=== PATIENT | male | born 1970 | race Caucasian/White ===

== ENCOUNTER 2020-02-22 03:18 | Emergency (ER) | payer BC ==
[~2020-02-22] VITALS: Ht 188 cm; Wt 90.9 kg
[2020-02-22 03:25] VITALS: BP 166/11; TEMP 97.4
[2020-02-22 04:12] LABS: BASO % 0.6 % (0.0-2.0); GRAN # 4.2 (1.4-6.5); GRAN % 62.4 % (42.2-75.2); HEMATOCRIT 41.3 % (42.0-52.0); HEMOGLOBIN 14.1 g/dl (13.5-18.0); LYMPH % 29.2 % (20.0-51.0); MEAN CELL VOLUME 90 fl (80.0-100.0); MEAN CORPUSCULAR HEMOGLOBIN 31 pg (27.0-31.0); MEAN CORPUSCULAR HGB CONC 34 g/dl (33.0-37.0); MEAN PLATELET VOLUME 10.9 fl (7.4-10.4); MONO # 0.5 (0.1-0.6); MONO % 7.5 % (1.7-9.3); PLATELET COUNT 214 K/mm3 (130-400); RED BLOOD COUNT 4.59 M/mm3 (4.20-5.60)
[2020-02-22 04:17] LABS: INR 0.9 (0.8-3.0)
[2020-02-22 04:20] LABS: PARTIAL THROMBOPLASTIN TIME 30.7 SECONDS (26.0-37.0)
[2020-02-22 04:25] LABS: ALANINE AMINOTRANSFERASE 24 U/L (4-49); ALBUMIN 4.1 gm/dL (3.5-5.0); ALKALINE PHOSPHATASE 69 U/L (50-136); ANION GAP 5 mmol/L (7-16); AST,SGOT 27 U/L (15-37); BILIRUBIN,TOTAL 0.7 mg/dL (0.0-1.0); BLOOD UREA NITROGEN 18 mg/dL (9-20); CALCIUM 9.1 mg/dL (8.4-10.2); CARBON DIOXIDE 25 mmol/L (22-30); CHLORIDE 105 mmol/L (98-107); CREATININE, serum 1.01 (0.66-1.25); GLUCOSE 102 mg/dL (74-106); SODIUM 136 mmol/L (137-145)
[2020-02-22 04:26] LABS: C-REACTIVE PROTEIN < 0.5 mg/dL (0.0-0.9)
[2020-02-22 06:30] VITALS: PULSE 63
== END 2020-02-22 07:05 | disposition home or self-care (01) ==
LOC: COL.ER 03:18
PROVIDERS: Emergency Medicine
DX: R51 Headache (principal); Z86.69 Personal history of other diseases of the nervous system and sense organs
CPT/HCPCS: J1200; J1885; J2550; J3010; J7030

== ENCOUNTER 2020-05-13 04:08 | Emergency (ER) | payer BC ==
[~2020-05-13] VITALS: Ht 188 cm; Wt 90.9 kg
[2020-05-13 04:16] VITALS: TEMP 98.8
[2020-05-13] MEDS ORDERED: NORCO 325 MG-51 TAB PO (06:36)
[2020-05-13] MEDS ORDERED: NORFLEX 10100 MG/TAB PO (06:36)
[2020-05-13 06:48] VITALS: BP 181/89; PULSE 90
== END 2020-05-13 06:50 | disposition home or self-care (01) ==
LOC: COL.ER 04:08
DX: M54.2 Cervicalgia (principal); M54.81 Occipital neuralgia; G43.909 Migraine, unspecified, not intractable, without status migrainosus
CPT/HCPCS: J1885; J2360

== ENCOUNTER 2021-02-17 10:40 | Outpatient (RCR) | payer OTHER ==
[~2021-02-17 10:40] MED LIST: NORCO 325 MG-51 TAB PO; NORFLEX 10100 MG/TAB PO
== END 2021-05-18 | disposition home or self-care (01) ==
LOC: WSOH
DX: S46.011A Strain of muscle(s) and tendon(s) of the rotator cuff of right shoulder, initial encounter (principal); G43.909 Migraine, unspecified, not intractable, without status migrainosus; M19.90 Unspecified osteoarthritis, unspecified site; Z98.890 Other specified postprocedural states; Y93.89 Activity, other specified; Y92.69 Other specified industrial and construction area as the place of occurrence of the external cause

== ENCOUNTER 2021-10-23 10:30 | Outpatient (RCR) | payer OTHER, BC | END 2021-11-02 | disposition home or self-care (01) | LOC: WSPT | DX: S06.0X0D Concussion without loss of consciousness, subsequent encounter (principal); M54.2 Cervicalgia; X58.XXXD Exposure to other specified factors, subsequent encounter ==

== ENCOUNTER 2021-10-27 09:01 | Outpatient (RCR) | payer OTHER, BC | END 2021-11-02 | disposition home or self-care (01) | LOC: WSST | DX: S06.0X0S Concussion without loss of consciousness, sequela (principal) ==

== ENCOUNTER 2021-11-29 15:00 | Outpatient (RCR) | payer OTHER | END 2021-12-02 | disposition home or self-care (01) | LOC: WSST | DX: S06.0X0S Concussion without loss of consciousness, sequela (principal) ==

== ENCOUNTER 2021-11-29 16:00 | Outpatient (RCR) | payer OTHER | END 2021-12-02 | disposition home or self-care (01) | LOC: MKS.ESL.PT | DX: S06.0X0D Concussion without loss of consciousness, subsequent encounter (principal); M54.2 Cervicalgia; X58.XXXD Exposure to other specified factors, subsequent encounter ==

== ENCOUNTER 2021-12-06 09:09 | Outpatient (RCR) | payer OTHER | END 2022-01-02 | disposition home or self-care (01) | LOC: WSST | DX: S09.90XD Unspecified injury of head, subsequent encounter (principal); R41.3 Other amnesia ==

== ENCOUNTER 2021-12-06 12:00 | Outpatient (RCR) | payer OTHER | END 2022-01-02 | LOC: MKS.ESL.PT | DX: M54.2 Cervicalgia (principal) ==

== ENCOUNTER 2022-01-16 12:45 | Outpatient (RCR) | payer OTHER | END 2022-02-01 | disposition home or self-care (01) | LOC: WSST | DX: S09.90XD Unspecified injury of head, subsequent encounter (principal); R41.3 Other amnesia ==

== ENCOUNTER 2024-05-21 23:42 | Observation (INO) | payer BC ==
[~2024-05-21] VITALS: Ht 185.4 cm; Wt 95.8 kg
[~2024-05-21 23:42] MED LIST changes: +ADDERALL5 MG PO; +ATIVAN 1MG T1 MG/TAB PO; +CALCIUM-MAGNES1 EAC1 PO; +CELEBREX50 MG PO; +CINNAMON500 MG PO; +FLEXERIL5 MG PO; +MULTI VITAMINS1 TAB PO; +NATURE'S BLEND600 M2 PO; +OMEGA-3 1000 MG1 CAP PO; +ROBAXIN 50500 MG/TAB PO; +TOPROL XL 50MG50 MG PO; +ULTRAM 50MG TAB50 MG PO; +VICODIN 5/300 PO; +VITAMIN B12 781 TAB PO
[2024-05-21] MEDS ORDERED: NS 1,000 ML IV ONE (23:45)
[2024-05-22] VITALS (7 sets, daily range): BP systolic 153–167; BP diastolic 76–98; PULSE 82–104; TEMP 98–99.2
[2024-05-22 00:02] LABS: BASO # 0.1 K/mm3 (0.0-0.2); BASO % 0.5 % (0.0-2.0); EOS % 0.2 % (0.0-4.0); GRAN # 8.9 K/mm3 (1.4-6.5); GRAN % 67.5 % (42.2-75.2); HEMATOCRIT 50.7 % (42.0-52.0); HEMOGLOBIN 17.5 g/dl (13.5-18.0); LYMPH # 3.4 K/mm3 (1.2-3.4); LYMPH % 26.1 % (20.0-51.0); MEAN CELL VOLUME 89 fl (80.0-100.0); MEAN CORPUSCULAR HEMOGLOBIN 31 pg (27-31); MEAN CORPUSCULAR HGB CONC 35 g/dl (33.0-37.0); MEAN PLATELET VOLUME 10.9 fl (7.4-10.4); MONO # 0.6 K/mm3 (0.1-0.6); MONO % 4.7 % (1.7-9.3); PLATELET COUNT 330 K/mm3 (130-400); RED BLOOD COUNT 5.72 M/mm3 (4.20-5.60); REDCELL DISTRIBUTION WIDTH-CV 13.3 % (11.5-14.5)
[2024-05-22 00:20] LABS: ALANINE AMINOTRANSFERASE 20 U/L (0-55); ALBUMIN 4.7 g/dL (3.5-5.0); ALKALINE PHOSPHATASE 87 U/L (40-150); ANION GAP 24 mmol/L (7-16); AST,SGOT 26 U/L (5-34); BILIRUBIN,TOTAL 0.9 mg/dL (0.2-1.2); BLOOD UREA NITROGEN 15 mg/dL (8-26); CALCIUM 9.8 mg/dL (8.4-10.2); CHLORIDE 104 mEq/L (98-107); CREATINE KINASE 452 U/L (30-200); CREATININE, serum 1.71 mg/dL (0.72-1.25); GLUCOSE 187 mg/dL (70-99); POTASSIUM 4.4 mEq/L (3.5-4.5); SODIUM 140 mEq/L (136-145)
[2024-05-22 00:22] LABS: ALCOHOL(ethanol),MEDICAL < 10 mg/dL (0-10)
[2024-05-22 00:26] LABS: TROPONIN-I 0.017 ng/mL (0.00-0.033)
[2024-05-22] MEDS ORDERED: levETIRAcetam 1,500 MG in Syringe 1 EACH IV ONE (01:30)
[2024-05-22] MEDS ORDERED: Morphine 4 MG/ML VIAL IV ONE ×2 (02:45→19:00)
[2024-05-22] MEDS ORDERED: Ondansetron 4 MG/2 ML VIAL IV PRN (03:00)
[2024-05-22] MEDS ORDERED: hydrALAZINE 20 MG/ML 1 ML VIAL IV PRN (03:00)
[2024-05-22] MEDS ORDERED: LR 1,000 ML IV SCH (03:00)
[2024-05-22] MEDS ORDERED: LORazepam 2 MG/ML 1 ML VIAL IV PRN (03:00)
[2024-05-22 04:53] LABS: COLLECTION METHOD CLEAN CATCH
[2024-05-22 05:05] LABS: PH 5.5 (5.0-8.5); URINE APPEARANCE CLEAR (CLEAR/HAZY); URINE BLOOD 1+ (NEGATIVE); URINE COLOR YELLOW (YELLOW); URINE GLUCOSE NEGATIVE (NEGATIVE); URINE KETONE 3+ (NEGATIVE); URINE NITRATE NEGATIVE (NEGATIVE); URINE PROTEIN(semi-quant) 1+ (NEGATIVE); URINE UROBILINOGEN 0.2 E.U/dL (0.2-1.0)
[2024-05-22 05:11] LABS: TRICYCLIC ANTIDEPRESS URINE POSITIVE (NEGATIVE)
[2024-05-22] MEDS ORDERED: ADDERALL XR30 MG PO (06:06)
[2024-05-22] MEDS ORDERED: DAZIDOX10 MG PO (06:16)
[2024-05-22] MEDS ORDERED: CELEBREX 200MG200 MG PO (06:16)
[2024-05-22] MEDS ORDERED: ULTRAM 50MG TAB50 MG PO (06:17)
[2024-05-22] MEDS ORDERED: DESYREL DIVIDO150 M1 PO (06:17)
--- NOTE | 2024-05-22 07:00 | NUR ---
PT IS RESTLESS IN THE BED ASKING FOR PAIN MEDICATION. HIS IS AT THE BEDSIDE. HE HAS ONE IV SITE INFUSING LR. HE IS ALERT AND ORIENTED
[2024-05-22 08:57] LABS: BASO % 0.2 % (0.0-2.0); EOS % 0.1 % (0.0-4.0); GRAN # 13.6 K/mm3 (1.4-6.5); GRAN % 78.9 % (42.2-75.2); HEMOGLOBIN 15.7 g/dl (13.5-18.0); LYMPH # 2.2 K/mm3 (1.2-3.4); LYMPH % 12.5 % (20.0-51.0); MEAN CORPUSCULAR HEMOGLOBIN 31 pg (27-31); MEAN CORPUSCULAR HGB CONC 37 g/dl (33.0-37.0); MEAN PLATELET VOLUME 10.7 fl (7.4-10.4); MONO # 1.3 K/mm3 (0.1-0.6); MONO % 7.8 % (1.7-9.3); PLATELET COUNT 274 K/mm3 (130-400); RED BLOOD COUNT 5.12 M/mm3 (4.20-5.60)
[2024-05-22 08:58] LABS: MEAN CELL VOLUME 84 fl (80.0-100.0)
[2024-05-22] MEDS ORDERED: Acetaminophen 325 MG TAB PO SCH (09:00)
[2024-05-22 09:11] LABS: CALCIUM 8.7 mg/dL (8.4-10.2); CREATININE, serum 1.14 mg/dL (0.72-1.25); POTASSIUM 3.7 mEq/L (3.5-4.5)
[2024-05-22] MEDS ORDERED: oxyCODONE 5 MG TAB PO PRN ×2 (12:30→19:00)
[2024-05-22] MEDS ORDERED: levETIRAcetam 500 MG TAB PO SCH (12:30)
[2024-05-22] MEDS ORDERED: Lidocaine 2% Viscous 15 ML UNIT DOSE MM PRN (12:30)
[2024-05-22] MEDS ORDERED: Celecoxib 200 MG CAP PO SCH (12:30)
[2024-05-22] MEDS ORDERED: Lidocaine 4% Topical Patch TP SCH (12:30)
[2024-05-22] MEDS ORDERED: Cyclobenzaprine 10 MG TAB PO SCH (13:30)
--- NOTE | 2024-05-22 14:13 | NUR ---
Veterans' Counselor met with patient to discuss discharge planning. Patient lives in [place] with his , Birdie (ph#[phone]) and sees Dr. Shah for primary care. Patient gets his medications from [facility]. SW attempted to ask further questions but patient sighed and grabbed his head. Patient stated he was in pain. SW notified bedside RNJahaira who advised patient is normally independent with ADLS. Discharge Plan; Home
--- NOTE | 2024-05-22 19:00 | NUR ---
MD CONTACTED THAT BALAJI IS COMPLAINING FO 8/9 OUT OF 10 PAIN TO THE NECK THAT IS CONSTANT DULL TO SHARP PAIN. PER MD TORB FOR OXYCODONE TO BE CHANGED TO Q4H PRN AND ONE TIME 2MG IV MORPHINE NOW
--- NOTE | 2024-05-22 20:00 | NUR ---
Shift assessment and neurocheck complete. No outstanding findings at this time. Call light in reach and fall precautions in place.
[2024-05-23] VITALS (13 sets, daily range): BP systolic 133–172; BP diastolic 74–94; PULSE 80–91; TEMP 97.9–99.4
--- NOTE | 2024-05-23 01:00 | NUR ---
Pt. activated bed alarm. This nurse and PCT went to assist pt. Pt. reports he's wanting to the restroom and states he "doesn't need that" referring to the bed alarm. Education provided regarding fall precautions. Offered to assist pt to restroom or assist w/ urinal. Pt. refused any toileting at this time. Pt. resting in bed w/ call light in reach. Fall precautions in place.
[2024-05-23 06:29] LABS: BASO # 0.1 K/mm3 (0.0-0.2); BASO % 0.5 % (0.0-2.0); EOS # 0.1 K/mm3 (0.0-0.7); EOS % 0.9 % (0.0-4.0); GRAN # 6.7 K/mm3 (1.4-6.5); HEMATOCRIT 41.3 % (42.0-52.0); HEMOGLOBIN 14.9 g/dl (13.5-18.0); LYMPH # 2.3 K/mm3 (1.2-3.4); LYMPH % 22.8 % (20.0-51.0); MEAN CELL VOLUME 85 fl (80.0-100.0); MEAN CORPUSCULAR HEMOGLOBIN 31 pg (27-31); MEAN CORPUSCULAR HGB CONC 36 g/dl (33.0-37.0); MEAN PLATELET VOLUME 10.9 fl (7.4-10.4); MONO # 0.8 K/mm3 (0.1-0.6); MONO % 7.6 % (1.7-9.3); PLATELET COUNT 245 K/mm3 (130-400); RED BLOOD COUNT 4.88 M/mm3 (4.20-5.60); REDCELL DISTRIBUTION WIDTH-CV 13.1 % (11.5-14.5)
[2024-05-23 06:44] LABS: CALCIUM 8.6 mg/dL (8.4-10.2); CREATININE, serum 1.02 mg/dL (0.72-1.25); POTASSIUM 3.8 mEq/L (3.5-4.5)
--- NOTE | 2024-05-23 07:19 | NUR ---
Pt. resting in bed w/ eyes closed; respirations even and unlabored. Call light in reach and fall precautions in place.
--- NOTE | 2024-05-23 12:42 | NUR ---
Data: Patient's visitors declined spiritual care visit offered during [employer] rounds. Assessment: None at this time. Plan of Care: Chaplains will remain available as requested while Patient is admitted to this hospital.
--- NOTE | 2024-05-23 15:49 | NUR ---
PATIENT GOING DOWN TO RADIOLOGY FOR LP. ALERT AND ORIENTED.
[2024-05-23] MEDS ORDERED: cefTRIAXone 2 G in Water For Injection,Sterile 20 ML IV SCH (16:00)
[2024-05-23] MEDS ORDERED: NS 1,000 ML IV SCH (16:15)
--- NOTE | 2024-05-23 17:00 | NUR ---
PATIENT BACK FROM PROCEDURE AT APPROX 1645. PATIENT TO LAY ON BACK FOR 1 HR POST PROCEDURE. PATIENT AGREEABLE. THIS RN STARTED ANOTHER IV TO LFA, 4 ABX ARE NEEDED TO BE GIVEN AROUND THE SAME TIME. MAINTENANCE FLUIDS STARTED PER ORDERS. PATIENT C/O OF 7/10 PAIN IN HIS NECK/BACK. THIS RN ADMINISTERS HORTENCIA PER MAR. DENIES FURTHER NEEDS OR CONCERNS AT THIS TIME. AT BEDSIDE. CALL LIGHT WITHIN REACH. DROPLET PRECAUTIONS IN PLACE.
[2024-05-23 17:35] LABS: TOTAL PROTEIN,CSF 47 mg/dL (15-45)
[2024-05-23 18:00] LABS: CSF APPEARANCE CLEAR; CSF COLOR COLORLESS; CSF RBC 487 /mm3 (0-0)
[2024-05-23] MEDS ORDERED: Vancomycin 1.5 GM,Special Dose/Pharmacy Prepared 1.5 GM in NS 250 ML IV SCH (18:00)
--- NOTE | 2024-05-23 18:30 | NUR ---
Bedside report received from LEANNE Keyes. Pt awake in bed with no complaints. Call light within reach and fall precautions in place.
[2024-05-23 19:09] LABS: CSF MONONUCLEAR 67 % (70-100); CSF POLYMORPHONUCLEAR 33 % (0-6)
[2024-05-24 00:13] VITALS: BP 147/80; PULSE 91; TEMP 98.3
[2024-05-24 03:31] VITALS: BP 179/85; PULSE 82; TEMP 97.7
[2024-05-24 04:36] VITALS: BP_SYST 179
[2024-05-24 06:21] LABS: HEMATOCRIT 37.1 % (42.0-52.0); HEMOGLOBIN 13.2 g/dl (13.5-18.0); MEAN CELL VOLUME 86 fl (80.0-100.0); MEAN CORPUSCULAR HEMOGLOBIN 31 pg (27-31); MEAN CORPUSCULAR HGB CONC 36 g/dl (33.0-37.0); MEAN PLATELET VOLUME 10.7 fl (7.4-10.4); PLATELET COUNT 211 K/mm3 (130-400); RED BLOOD COUNT 4.31 M/mm3 (4.20-5.60)
[2024-05-24 06:40] LABS: CALCIUM 7.7 mg/dL (8.4-10.2); CREATININE, serum 0.86 mg/dL (0.72-1.25); POTASSIUM 3.3 mEq/L (3.5-4.5)
[2024-05-24 08:33] VITALS: BP 164/88; PULSE 87; TEMP 98.3
[2024-05-24 09:47] VITALS: BP_SYST 164
[2024-05-24] MEDS ORDERED: ZOVIRAX400 MG PO (12:22)
[2024-05-24] MEDS ORDERED: KEPPRA 500MG500 MG PO (12:56)
--- NOTE | 2024-05-24 12:59 | NUR ---
THIS RN PROVIDED PATIENT WITH DISCHARGE EDUCATION AND INSTRUCTIONS. ALL QUESTIONS ANSWERED.
--- NOTE | 2024-05-24 13:29 | NUR ---
PATIENT ESCORTED OFF UNIT BY THIS RN. HAS ALL BELONGINGS.
[2024-05-27 14:13] LABS: HSV 2 DNA PCR QUAL Negative (Negative)
== END 2024-05-24 13:20 | disposition home or self-care (01) ==
LOC: COL.ER 23:42 → MEDICAL 05-22 04:30
PROVIDERS: Emergency Medicine; Physician Assistant; ADMIT Internal Medicine
DX: R56.9 Unspecified convulsions (principal); N17.9 Acute kidney failure, unspecified; D72.829 Elevated white blood cell count, unspecified; I10 Essential (primary) hypertension; E87.20 Acidosis, unspecified; R74.8 Abnormal levels of other serum enzymes; Z79.899 Other long term (current) drug therapy
CPT/HCPCS: G0378; J0133; J0290; J0360; J0696; J1953; J2270; J3370; J7030; J7050; J7120; Q3014